=== PATIENT | female | born 1985 | race Caucasian/White ===

== ENCOUNTER 2020-09-24 12:55 | Outpatient (REF) | payer MEDICAID, SELFPAY ==
[2020-09-25 08:59] LABS: BV Int Neg Control Negative (Negative); BV Int Pos Control Positive (Positive)
== END 2020-09-24 12:56 | disposition home or self-care (01) ==
LOC: HO.LAB 12:55
PROVIDERS: PCP Internal Medicine; Visit Provider Advanced Practice Midwife
DX: Z01.419 Encounter for gynecological examination (general) (routine) without abnormal findings (principal); N89.8 Other specified noninflammatory disorders of vagina; N63.23 Unspecified lump in the left breast, lower outer quadrant; R51.9 Headache, unspecified; I83.93 Asymptomatic varicose veins of bilateral lower extremities; Z86.16 Personal history of COVID-19
CPT/HCPCS: 87480; 87510; 87660

== ENCOUNTER 2020-10-08 07:58 | Outpatient (REF) | payer MEDICAID, SELFPAY ==
--- NOTE | ~2020-10-08 | MM_ITS ---
EXAMINATION: MM DIAGNOSTIC DIGITAL BREAST TOMOSYNTHESIS, BILATERAL US DIAGNOSTIC ULTRASOUND BREAST, RIGHT CLINICAL INFORMATION: Palpable fullness clinical exam lower inner right breast. Patient notes no new palpable abnormality. Prior benign right breast biopsy 10/08/2017, fibroadenoma. The lifetime risk of breast cancer based on the Tyrer-Cuzick Model is 11%. COMPARISON: Mammography: 09/27/2017, 10/08/2017, ultrasound right breast 09/27/2017, 10/08/2017 TECHNIQUE: Digital breast tomosynthesis is performed in both the craniocaudal and mediolateral oblique views along with computer-aided detection (CAD). Synthesized 2D images are generated from the tomosynthesis. Ultrasound right breast is targeted to the lower inner breast. Grayscale imaging and color Doppler are performed. FINDINGS: There are scattered areas of fibroglandular density (ACR BI-RADS breast composition Category b). The breasts show no significant mass or architectural abnormality or interval duct ectasia. There are no abnormal calcifications. The known fibroadenoma lower inner quadrant right breast mid depth is moderately decreased in size since 2018. The skin contours are smooth. No skin thickening or coarsening of the Josue's ligaments. Ultrasound demonstrates no duct ectasia, skin thickening, or edema tracking in soft tissue planes, or interval cystic or solid mass. The fibroadenoma is clearly decreased in size on tomography and difficult to identify with ultrasound. Results are discussed with the patient at time of visit. Patient should be managed based on the clinical impression. If clinically indicated, further evaluation may be considered with surgical consult. Decision to proceed with biopsy should be based on clinical grounds and degree of clinical concern. MM/MM tomosynthesis diagnostic BI IMPRESSION: 1. No mammographic evidence of malignancy or inflammatory changes. 2. Right breast fibroadenoma moderately decreased in size since 2018. ASSESSMENT: BI-RADS 2: Benign RECOMMENDATION: 1. Patient should be managed based on the clinical impression. If clinically indicated, further evaluation may be considered with surgical consult. Decision to proceed with biopsy should be based on clinical grounds and degree of clinical concern. 2. Otherwise, routine annual screening mammography. This patient's information was entered into a reminder system with a target due date for their next mammogram.
== END 2020-10-08 07:59 | disposition home or self-care (01) ==
LOC: HO.MAMMO 07:58
PROVIDERS: Visit Provider Advanced Practice Midwife
DX: N63.23 Unspecified lump in the left breast, lower outer quadrant (principal)
CPT/HCPCS: 76642; 77062; 77066

== ENCOUNTER → 2020-10-22 11:20 | Outpatient (BNVA) | payer MEDICAID, SELFPAY | PROVIDERS: PCP Internal Medicine; Visit Provider Advanced Practice Midwife ==

== ENCOUNTER 2020-10-23 16:08 | Outpatient (REF) | payer MEDICAID, SELFPAY | END 2020-10-23 16:09 | disposition home or self-care (01) | LOC: HO.LAB 16:08 | PROVIDERS: PCP Internal Medicine; Visit Provider Advanced Practice Midwife | DX: N64.52 Nipple discharge (principal) | CPT/HCPCS: 36415; 84146 ==

== ENCOUNTER → 2021-03-10 20:31 | Outpatient (REF) | payer MEDICAID, SELFPAY | LOC: HO.SL 20:31 | PROVIDERS: Visit Provider Internal Medicine | DX: G47.33 Obstructive sleep apnea (adult) (pediatric) (principal) | CPT/HCPCS: 95810 ==

== ENCOUNTER → 2021-04-15 13:57 | Outpatient (BNVA) | payer MEDICAID, SELFPAY | PROVIDERS: Visit Provider Advanced Practice Midwife | DX: E28.2 Polycystic ovarian syndrome (principal); N93.9 Abnormal uterine and vaginal bleeding, unspecified | CPT/HCPCS: 99212 ==

== ENCOUNTER 2021-05-12 11:00 | Outpatient (REF) | payer MEDICAID, SELFPAY ==
--- NOTE | ~2021-05-12 | US_ITS ---
EXAMINATION: US PELVIS CLINICAL INFORMATION: Polycystic ovarian syndrome. COMPARISON: 06/06/2018 TECHNIQUE: Ultrasound of the pelvis is performed using both transabdominal and transvaginal transducers along with Doppler. Transvaginal imaging is performed due to inadequate visualization transabdominally. FINDINGS: There are some limitations related to gas and full bladder on transvaginal examination despite patient voiding. Uterus: The uterus is anteverted and measures 7.7 x 1.9 x 3.9 cm. Nabothian cysts are present. The double wall endometrial thickness is [address] The uterus is smooth in contour and has normal myometrial echogenicity. No visible fibroid. Adnexa: Both ovaries are visualized. There is normal color flow to the adnexa. There is no ovarian torsion. There is no pelvic ascites or fluid collection. Right ovary measures 3.4 x 2.1 x 2.5 cm. 9.3 mL volume. There is a 2.6 x 2.0 x 2.4 cm avascular cyst present. Left ovary was not seen. US/US pelvic and transvaginal IMPRESSION: No specific ultrasound findings to suggest polycystic ovarian syndrome. A 2.6 cm right ovarian cyst. IUD in place.
[2021-05-12 11:25] LABS: MANUAL DIFF FLAG NO
[2021-05-12 11:41] LABS: Basophils Percent Auto 0.6 % (0-2); Eosinophils Absolute Auto 0.5 X10*3/uL (0.0-0.4); Hematocrit 41.8 % (37-47); Hemoglobin 13.7 g/dl (12.0-16.0); Imm Gran Abs Auto 0.03 X10*3/uL (0.00-0.03); Imm Gran Pct Auto 0.4 % (0.0-0.4); Lymphocytes Absolute Auto 1.9 X10*3/uL (1.2-4.9); Lymphocytes Percent Auto 28.5 % (20-40); Mean Corpuscular HGB Conc 32.8 g/dl (31.0-35.0); Mean Corpuscular Hemoglobin 28.1 pg (27.0-33.0); Mean Corpuscular Volume 85.7 fL (80-98); Mean Platelet Volume 9.2 fL (9.4-12.3); Monocytes Absolute Auto 0.4 X10*3/uL (0.1-1.2); Monocytes Percent Auto 6.6 % (2-11); Neutrophils Absolute Auto 3.8 X10*3/uL (2.0-8.3); Neutrophils Percent Auto 56.9 % (45-73); Platelet Count 292 X10*3/uL (160-400); Red Blood Count 4.88 X10*6/uL (4.20-5.50); Red Cell Distribution Width 12.8 % (11.0-16.0); White Blood Count 6.7 X10*3/uL (4.8-10.8)
[2021-05-12 12:21] LABS: TSH reflex Free T4 2.21 uIU/mL (0.32-4.0)
[2021-05-13 05:20] LABS: DHEA Sulfate 412 mcg/dL (23-266)
[2021-05-13 21:51] LABS: Prolactin 7.2 ng/mL
[2021-05-16 15:26] LABS: Testosterone, Free 5.7 pg/mL (0.1-6.4); Testosterone, Total 49 ng/dL (2-45)
== END 2021-05-12 11:01 | disposition home or self-care (01) ==
LOC: HO.US 11:00
PROVIDERS: Visit Provider Advanced Practice Midwife
DX: E28.2 Polycystic ovarian syndrome (principal); N93.9 Abnormal uterine and vaginal bleeding, unspecified
CPT/HCPCS: 36415; 76830; 76856; 82627; 83498; 84146; 84402; 84403; 84443; 85025

== ENCOUNTER 2021-05-26 14:27 | Outpatient (REF) | payer MEDICAID, SELFPAY ==
[2021-05-27 01:30] LABS: CT PCR NOT DETECTED (Not Detect.); NG PCR NOT DETECTED (Not Detect.)
[2021-05-27 12:09] LABS: BV Int Neg Control Negative (Negative); BV Int Pos Control Positive (Positive)
== END 2021-05-26 14:28 | disposition home or self-care (01) ==
LOC: HO.LAB 14:27
PROVIDERS: PCP Internal Medicine; Visit Provider Advanced Practice Midwife
DX: E28.2 Polycystic ovarian syndrome (principal); N93.9 Abnormal uterine and vaginal bleeding, unspecified; R79.89 Other specified abnormal findings of blood chemistry; E27.8 Other specified disorders of adrenal gland; Z20.2 Contact with and (suspected) exposure to infections with a predominantly sexual mode of transmission
CPT/HCPCS: 87480; 87491; 87510; 87591; 87660; 99212

== ENCOUNTER 2021-09-29 14:54 | Outpatient (REF) | payer MEDICAID, SELFPAY ==
[2021-09-29 16:23] LABS: Hematocrit 42.8 % (37.0-47.0); Mean Corpuscular HGB Conc 32.7 g/dl (31.0-35.0); Mean Corpuscular Hemoglobin 28.1 pg (27.0-33.0); Mean Corpuscular Volume 85.9 fL (80.0-98.0); Mean Platelet Volume 9.5 fL (9.4-12.3); Platelet Count 296 X10*3/uL (160-400); Red Blood Count 4.98 X10*6/uL (4.20-5.50); Red Cell Distribution Width 12.7 % (11.0-16.0); White Blood Count 8.8 X10*3/uL (4.8-10.8)
[2021-09-30 03:06] LABS: CT PCR NOT DETECTED (Not Detect.); NG PCR NOT DETECTED (Not Detect.)
[2021-09-30 14:13] LABS: BV Int Neg Control Negative (Negative); BV Int Pos Control Positive (Positive)
[2021-10-02 11:00] LABS: HPV mRNA E6/E7 rflx Not Detected (Not Detected)
== END 2021-09-29 14:55 | disposition home or self-care (01) ==
LOC: HO.LAB 14:54
PROVIDERS: PCP Internal Medicine; Visit Provider Advanced Practice Midwife
DX: Z01.411 Encounter for gynecological examination (general) (routine) with abnormal findings (principal); Z11.51 Encounter for screening for human papillomavirus (HPV); N89.8 Other specified noninflammatory disorders of vagina; N93.9 Abnormal uterine and vaginal bleeding, unspecified; R10.2 Pelvic and perineal pain; Z20.2 Contact with and (suspected) exposure to infections with a predominantly sexual mode of transmission; N83.201 Unspecified ovarian cyst, right side
CPT/HCPCS: 36415; 85027; 87480; 87491; 87510; 87591; 87624; 87660; 88142

== ENCOUNTER 2021-10-28 15:53 | Outpatient (REF) | payer MEDICAID, SELFPAY ==
--- NOTE | ~2021-10-28 | US_ITS ---
EXAMINATION: US PELVIS CLINICAL INFORMATION: Abnormal uterine and vaginal bleeding COMPARISON: Previous pelvic ultrasounds most recent April 2021 TECHNIQUE: Ultrasound of the pelvis is performed using both transabdominal and transvaginal transducers along with Doppler. Transvaginal imaging is performed due to inadequate visualization transabdominally. FINDINGS: The uterus is retroverted and retroflexed and slightly tilted to the left. The uterus measures 5.8 x 3 x 5.1 cm region. No focal uterine lesion is seen. There is an IUD in the uterus. This is slightly low in position, 1.6 cm from the top of the endometrium. The endometrium does not appear thickened measuring 0.8 cm. No focal uterine lesion is seen. The right ovary is normal-appearing and measures 3.4 x 2.2 x 2 cm. The left ovary is slightly enlarged measuring 4.7 x 3.1 x 3.8 cm, volume 29 mL. There is a 4 x 2.7 x 3 cm left ovarian cyst. There is no fluid in the pelvis. US/US pelvic and transvaginal IMPRESSION: IUD in the uterus. This is slightly low in position 1.6 cm from the top of the endometrium. Enlarged left ovary and 4 x 2.7 x 3.2 cm left ovarian cyst.
== END 2021-10-28 15:54 | disposition home or self-care (01) ==
LOC: HO.US 15:53
PROVIDERS: Visit Provider Advanced Practice Midwife
DX: Z30.431 Encounter for routine checking of intrauterine contraceptive device (principal); N93.9 Abnormal uterine and vaginal bleeding, unspecified
CPT/HCPCS: 76830; 76856

== ENCOUNTER → 2021-11-04 15:56 | Outpatient (BNVA) | payer MEDICAID, SELFPAY | PROVIDERS: Visit Provider Advanced Practice Midwife | DX: Z13.89 Encounter for screening for other disorder (principal) ==

== ENCOUNTER 2022-01-09 08:16 | Outpatient (REF) | payer MEDICAID, SELFPAY ==
[2022-01-09 08:36] LABS: MANUAL DIFF FLAG NO
[2022-01-09 09:09] LABS: Basophils Percent Auto 0.5 % (0-2); Eosinophils Absolute Auto 0.3 X10*3/uL (0.0-0.4); Eosinophils Percent Auto 4.7 % (0-4); Hematocrit 39.5 % (37.0-47.0); Hemoglobin 13.3 g/dl (12.0-16.0); Imm Gran Abs Auto 0.01 X10*3/uL (0.00-0.03); Imm Gran Pct Auto 0.2 % (0.0-0.4); Lymphocytes Absolute Auto 1.6 X10*3/uL (1.2-4.9); Lymphocytes Percent Auto 29.1 % (20-40); Mean Corpuscular HGB Conc 33.7 g/dl (31.0-35.0); Mean Corpuscular Hemoglobin 28.7 pg (27.0-33.0); Mean Corpuscular Volume 85.3 fL (80.0-98.0); Mean Platelet Volume 9.6 fL (9.4-12.3); Monocytes Absolute Auto 0.4 X10*3/uL (0.1-1.2); Monocytes Percent Auto 7.2 % (2-11); Neutrophils Absolute Auto 3.3 x10*3/uL (2.0-8.3); Neutrophils Percent Auto 58.3 % (45-73); Platelet Count 259 X10*3/uL (160-400); Red Blood Count 4.63 X10*6/uL (4.20-5.50); White Blood Count 5.6 X10*3/uL (4.8-10.8)
[2022-01-09 09:33] LABS: Alanine Aminotransferase 19 U/L (0-31); Albumin Level 4.2 g/dL (3.5-5.0); Alkaline Phosphatase 74 U/L (39-117); Anion Gap 11 (12-20); Aspartate Amino Transferase 13 U/L (5-31); Bilirubin Total 0.6 mg/dL (0.0-1.0); Blood Urea Nitrogen 10 mg/dL (9-16); Calcium 9.4 mg/dL (8.4-10.2); Carbon Dioxide 27 mmol/L (22-29); Chloride 104 mmol/L (96-108); Cholesterol 149 mg/dL; Estimated Glomerular Filt Rate > 60; Glucose Fasting 93 mg/dL (60-99); HDL Cholesterol 56 mg/dL; LDL Cholesterol Calculated 83 mg/dl; Potassium 4.4 mmol/L (3.3-5.1); Sodium 138 mmol/L (135-145); Total Protein 6.9 g/dL (6.5-8.0); Triglycerides 51 mg/dL
[2022-01-09 09:56] LABS: Thyroid Stimulating Hormone 2.48 uIU/mL (0.32-4.0)
== END 2022-01-09 08:17 | disposition home or self-care (01) ==
LOC: HO.LAB 08:16
PROVIDERS: PCP Internal Medicine; Visit Provider Internal Medicine
DX: E03.8 Other specified hypothyroidism (principal); G47.33 Obstructive sleep apnea (adult) (pediatric); I10 Essential (primary) hypertension; J30.89 Other allergic rhinitis
CPT/HCPCS: 36415; 80053; 80061; 84443; 85025

== ENCOUNTER → 2022-03-17 11:38 | Outpatient (BNVA) | payer MEDICAID, SELFPAY | PROVIDERS: PCP Internal Medicine; Visit Provider Advanced Practice Midwife | DX: Z30.432 Encounter for removal of intrauterine contraceptive device (principal); T83.32XA Displacement of intrauterine contraceptive device, initial encounter; R10.2 Pelvic and perineal pain; R32 Unspecified urinary incontinence | CPT/HCPCS: 58301 ==

== ENCOUNTER 2022-05-26 12:54 | Outpatient (REF) | payer MEDICAID, SELFPAY ==
--- NOTE | ~2022-05-26 | US_ITS ---
EXAMINATION: US PELVIS CLINICAL INFORMATION: Pain COMPARISON: Previous pelvic ultrasound most recent October 2021 TECHNIQUE: Ultrasound of the pelvis is performed using both transabdominal and transvaginal transducers along with Doppler. Transvaginal imaging is performed due to inadequate visualization transabdominally. FINDINGS: The uterus is anteverted and retroflexed and measures 6.9 x 2.7 x 4 cm. No focal uterine lesion is seen. Endometrial thickness is normal measuring 0.7 cm. IUD on October 2021 exam is no longer seen. There are nabothian cysts in the cervix. The right ovary is normal-appearing and measures 2.3 x 1.5 x 1.9 cm. The left ovary is seen transabdominally only and is normal-appearing. The left ovary measures 3.5 x 2.1 x 2.1 cm. There is no fluid in the pelvis. US/US pelvic and transvaginal IMPRESSION: Unremarkable exam. IUD no longer seen.
== END 2022-05-26 12:55 | disposition home or self-care (01) ==
LOC: HO.US 12:54
PROVIDERS: Visit Provider Advanced Practice Midwife
DX: R10.2 Pelvic and perineal pain (principal)
CPT/HCPCS: 76830; 76856

== ENCOUNTER → 2022-06-25 11:12 | Outpatient (BNVA) | payer MEDICAID, SELFPAY | PROVIDERS: Visit Provider Advanced Practice Midwife | DX: N94.9 Unspecified condition associated with female genital organs and menstrual cycle (principal) | CPT/HCPCS: 99212 ==

== ENCOUNTER 2022-07-14 14:37 | Outpatient (REF) | payer MEDICAID, SELFPAY ==
[2022-07-14 17:09] LABS: Thyroid Stimulating Hormone 1.29 uIU/mL (0.32-4.0)
== END 2022-07-14 14:38 | disposition home or self-care (01) ==
LOC: HO.LAB 14:37
PROVIDERS: PCP Internal Medicine; Visit Provider Internal Medicine
DX: Z00.00 Encounter for general adult medical examination without abnormal findings (principal); E03.8 Other specified hypothyroidism; I10 Essential (primary) hypertension; I87.2 Venous insufficiency (chronic) (peripheral)
CPT/HCPCS: 36415; 84443

== ENCOUNTER → 2022-08-11 13:58 | Outpatient (BNVA) | payer MEDICAID, SELFPAY | PROVIDERS: PCP Internal Medicine; Visit Provider Advanced Practice Midwife | DX: Z30.09 Encounter for other general counseling and advice on contraception (principal) | CPT/HCPCS: 99212 ==

== ENCOUNTER → 2022-08-31 10:39 | Outpatient (BNVA) | payer MEDICAID, SELFPAY | PROVIDERS: PCP Internal Medicine; Visit Provider Advanced Practice Midwife | DX: Z30.430 Encounter for insertion of intrauterine contraceptive device (principal) | CPT/HCPCS: 58300; 81025; J7300 ==

== ENCOUNTER → 2022-10-13 14:38 | Outpatient (BNVA) | payer MEDICAID, SELFPAY | PROVIDERS: PCP Internal Medicine; Visit Provider Advanced Practice Midwife | DX: Z30.431 Encounter for routine checking of intrauterine contraceptive device (principal); R21 Rash and other nonspecific skin eruption | CPT/HCPCS: 99212 ==

== ENCOUNTER 2022-11-19 13:00 | Outpatient (RCR) | payer MEDICAID, SELFPAY | END 2022-11-19 13:56 | disposition home or self-care (01) | LOC: HO.PT 13:00 | PROVIDERS: PCP Internal Medicine; Visit Provider Advanced Practice Midwife | DX: R32 Unspecified urinary incontinence (principal) | CPT/HCPCS: 97112; 97140; 97162 ==

== ENCOUNTER 2023-01-07 13:10 | Outpatient (REF) | payer OTHER, MEDICAID, SELFPAY ==
[2023-01-08 11:53] LABS: CT PCR NOT DETECTED (Not Detect.); NG PCR NOT DETECTED (Not Detect.)
[2023-01-08 13:57] LABS: BV Int Neg Control Negative (Negative); BV Int Pos Control Positive (Positive)
== END 2023-01-07 13:11 | disposition home or self-care (01) ==
LOC: HO.LAB 13:10
PROVIDERS: PCP Internal Medicine; Visit Provider Advanced Practice Midwife
DX: N92.1 Excessive and frequent menstruation with irregular cycle (principal); Z97.5 Presence of (intrauterine) contraceptive device
CPT/HCPCS: 0353U; 87480; 87510; 87660

== ENCOUNTER 2023-01-07 13:51 | Outpatient (REF) | payer OTHER, MEDICAID, SELFPAY | END 2023-01-07 13:52 | disposition home or self-care (01) | LOC: HO.LNP 13:51 | PROVIDERS: Visit Provider Advanced Practice Midwife | DX: Z13.89 Encounter for screening for other disorder (principal) ==

== ENCOUNTER 2024-01-14 13:55 | Outpatient (AMB) | payer OTHER, SELFPAY ==
[2024-01-14 13:55] VITALS: BP 128/86; BMI 36.9
--- NOTE | 2024-01-14 13:55 | A.OFFVIS_ITS ---
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 Allergies azithromycin [AZITHROMYCIN] Allergy (Intermediate, Verified 01/14/24 13:55) HIVES cephalexin [CEPHALEXIN] Allergy (Intermediate, Verified 01/14/24 13:55) HIVES Penicillins [PENICILLINS] Allergy (Intermediate, Verified 01/14/24 13:55) HIVES Clindamycin HCl Allergy (Unknown, Verified 01/14/24 13:55) Unknown escitalopram [From Lexapro] Allergy (Unknown, Verified 01/14/24 13:55) Unknown penicillin V Allergy (Unknown, Verified 01/14/24 13:55) Unknown Is last menstrual period known: Yes Last menstrual period: 12/24/23 HPI Comments Details: She is a premenopausal woman presenting for annual examination. Doing well with no concerns. Has urinary leakage and urgency at times, has tried pelvic floor PT did not help. She tries to eat healthy and stays active with exercise. Weight loss over the last years 90+ balance and she is feeling good. Regular monthly menses since her surgery. Uses ParaGard IUD for control, has no plans for future . Currently is sexually active with . She denies vaginal itching and irritation. STI screening offered; she declines. Denies family history of ovarian or colon cancer. FH breast cancer. Last pap smear 2021, negative. [facility] Medical History Varicosities of leg Obesity PCOS (polycystic ovarian syndrome) Fibroadenoma of right breast DVT (deep venous thrombosis) Occipital neuralgia COVID-19 Hypothyroid ADHD Surgical History H/O varicose vein stripping Hx of wisdom tooth extraction Family History Maternal Aunt Breast cancer Father Heart disease H/O heart artery stent Social History Alcohol intake: current Female Reproductive History Menstrual Duration of menses: 6-7 days Date of last menstrual period: 12/24/23 control method: copper IUCD Date of last pap smear: 09/30/21 History of abnormal pap smear: No History of STI: No Date of Mammogram: 10/08/20 History of abnormal mammogram: Yes Review of Systems Const All systems reviewed & are unremarkable except as noted in HPI and below Reports as per HPI Eyes Reports no additional complaints ENT Reports no additional complaints Card Reports no additional complaints Resp Reports no additional complaints GI Reports as per HPI and Reports no additional complaints Reports as per HPI Musc Reports no additional complaints Skin/Breast Reports as per HPI Neuro Reports no additional complaints Psych Reports no additional complaints Endo Reports no additional complaints Horacio/Lymph Reports no additional complaints Aller/Immun Reports no additional complaints Physical Exam Vital Signs: Last Vital Signs BP 128/86 01/14/24 13:55 BMI result Body Mass Index 36.9 Const General: cooperative, healthy appearing, no acute distress, well developed and alert Orientation/consciousness: patient oriented x3 HEENT Head: Yes normal to inspection Eyes General: appearance normal, both eyes and all related structures Neck Neck: Yes normal visual inspection Thyroid: Thyroid normal Chest Chest palpation & inspection: normal inspection of the chest and other (no puckering, dimpling, peau de orange, retraction, discharge, masses) Breast/axilla inspection: normal inspection of the breasts Breast/axilla palpation: normal palpation of the breasts Resp Effort & Inspection: normal respiratory effort GI Inspection: Yes normal to inspection and Yes scar Palpation (GI): Soft to palpation Rectal Exam - Female: deferred General: Yes bladder normal to palpation External Female Exam: normal external appearance and normal appearance of the urethra Speculum Exam - Vagina: normal appearance of the vagina, normal palpation and normal vaginal discharge Speculum Exam - Cervix: normal appearance of the cervix, normal palpation and Other cervical findings present (IUD strings present at the os) Bimanual exam- vagina & uterus: normal bimanual exam, normal palpation, uterine size normal, bladder normal to palpation, normal palpation and non-tender Bimanual Exam- Adnexa, other: no masses Skin General skin exam: no rashes or lesions noted Rashes: no rashes Neuro General: patient oriented x3 Cognition (Neuro): normal cognition Extrem General: Yes normal to inspection Psych Attitude: cooperative Thought process: Normal thought process present Assessment & Plan Assessment & Plan (1) Encounter for well woman exam with routine gynecological exam: Code(s): Z01.419 - Encounter for gynecological examination (general) (routine) without abnormal findings Category: Medical Plan: (2) Urge incontinence: Code(s): N39.41 - Urge incontinence Category: Medical Plan Discussed: Current recommendations for pap smears per ASCCP guidelines. Breast awareness and periodic breast exams. Maintain a healthy lifestyle including a well balanced diet and routine exercise. Referral to urology for urge incontinence. Monitor menses and report any problems or concerns. Patient verbalizes understanding and agrees to the plan of care. She was given opportunity to ask questions and all questions were answered to the best of my ability. RTO in one year for annual director of litigation examination. This note is constructed using voice recognition software. While every effort has been made to ensure accuracy, superintendent generating plant errors may have been included. Orders: Referrals Urology Referral N39.41 - Urge incontinence Coding Level of Care Code Est Pt Prev Care 18-39y(43586) Diagnoses Encounter for well woman exam with routine gynecological exam Z01.419 Urge incontinence N39.41
== END 2024-01-14 14:23 | disposition home or self-care (01) ==
PROVIDERS: PCP Internal Medicine; Visit Provider Advanced Practice Midwife
DX: Z01.419 Encounter for gynecological examination (general) (routine) without abnormal findings (principal); N39.41 Urge incontinence
CPT/HCPCS: 99395

== ENCOUNTER → 2024-01-14 13:55 | Outpatient (BNVA) | payer OTHER, SELFPAY | PROVIDERS: PCP Internal Medicine; Visit Provider Advanced Practice Midwife | DX: Z01.419 Encounter for gynecological examination (general) (routine) without abnormal findings (principal); N39.41 Urge incontinence | CPT/HCPCS: 99395 ==

== ENCOUNTER 2024-03-28 14:49 | Outpatient (AMB) | payer OTHER, SELFPAY ==
--- NOTE | 2024-03-28 15:15 | A.OFFVIS_ITS ---
Intake Visit Reasons: urge incontinence Intake Note: New Patient presents for initial visit for incontinence Urology Medications: none Blood Thinner: none PVR: 0ml's Bar Turner Required: No Accompanied by: Self / Same As Patient Allergies azithromycin [AZITHROMYCIN] Allergy (Intermediate, Verified 03/28/24 19:21) HIVES cephalexin [CEPHALEXIN] Allergy (Intermediate, Verified 03/28/24 19:21) HIVES Penicillins [PENICILLINS] Allergy (Intermediate, Verified 03/28/24 19:21) HIVES Clindamycin HCl Allergy (Unknown, Verified 03/28/24 19:21) Unknown escitalopram [From Lexapro] Allergy (Unknown, Verified 03/28/24 19:21) Unknown penicillin V Allergy (Unknown, Verified 03/28/24 19:21) Unknown Medication List - Last Reconciled 03/28/24 by MEJIA Owusu-MARCIANO ascorbate calcium (vitamin C) 500 mg PO DAILY calcium citrate-vitamin D3 500 mg-12.5 mcg (500 unit) tabs PO copper (ParaGard T 380A) intrauterine DAILY econazole 1% 1 appl topical BID 2 weeks fluoxetine 40 mg PO QAM levothyroxine 75 mcg PO DAILY methylphenidate HCl (Ritalin) 10 mg PO BID [id number]-FA-vit K 45 mg iron- 800 mcg-120 mcg (Bariatric Multivitamins) caps PO nystatin 1 appl topical BID omeprazole magnesium (Prilosec OTC) 20 mg PO DAILY HPI Comments Details: Ramya is a very pleasant 38-year-old female patient of Dr. Patel. She has a past medical history of obesity, PCOS, fibroadenoma of right breast, DVT, occipital neuralgia, hypothyroidism, and ADHD. She presents to the office today as a new patient for ongoing urinary urgency, in mixed urinary incontinence. In discussion with the patient today she reports having had bariatric surgery over a year ago and has since lost 97 lb. She does report minimal improvement with lower urinary tract symptoms with weight loss however still continues. 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 She reports utilizing 1-3 Kenzie pads per day. She otherwise denies nocturia, hematuria, dysuria, foul smelling urine, changes to urinary stream, flank pain, fever, and or chills. In office urinalysis results reviewed with the patient today. PVR 0 mL. Discussed obtai toni retroperitoneal ultrasound for further assessment evaluation. We discussed at length potential causes of mixed urinary incontinence she is experiencing. Discussed bladder triggers/irritants. She otherwise offers no other issues or concerns at this time. [facility] Medical History Varicosities of leg Obesity PCOS (polycystic ovarian syndrome) Fibroadenoma of right breast DVT (deep venous thrombosis) Occipital neuralgia COVID-19 Hypothyroid ADHD Surgical History H/O varicose vein stripping Hx of wisdom tooth extraction Family History Maternal Aunt Breast cancer Father Heart disease H/O heart artery stent Social History Alcohol intake: current Review of Systems Const All systems reviewed & are unremarkable except as noted in HPI and below Physical Exam Const General: cooperative, healthy appearing, comfortable, no acute distress, well developed, alert and awake Nutritional Appearance: overweight Orientation/consciousness: patient oriented x3 Limitations: no limitations HEENT Head: Yes normal to inspection, Yes normocephalic and Yes atraumatic Ears: hearing grossly normal bilaterally Eyes General: appearance normal, both eyes and all related structures Neck Neck: Yes normal visual inspection and Yes trachea midline Chest Chest palpation & inspection: normal inspection of the chest Resp Effort & Inspection: normal respiratory effort and able to speak in complete sentences Cardio Rate: regular rate GI Inspection: Yes normal to inspection General: Yes no CVA tenderness Back/Spine/Pelvis Back: no CVA tenderness Skin General skin exam: no rashes or lesions noted Neuro General: patient oriented x3 Extrem General: Yes normal to inspection Psych Appearance: grossly normal and well kempt Mental Status: mental status grossly normal Speech and movement: Normal speech and movement present and Clear speech present Affect: normal affect Attitude: cooperative Thought process: Normal thought process present Thought content: Normal thought content present Insight: Fair insight present (Psych) Judgement: Fair judgement present (Psych) Office Procedures Post Void Residual Post Residual Void Post Void Residual (PVR): 0 [id number]-[id number] Void Residual by ultrasound Results AMB Urinalysis, Automated UA Leukoctes 0 Tayo/uL Last Edit by Mohamud Hodges on 03/28/24 15:50 UA Nitrite Last Edit by Mohamud Hodges on 03/28/24 15:50 UA Urobilinogen 0.2 mg/dL Last Edit by Mohamud Hodges on 03/28/24 15:50 UA Protein 0 mg/dL Last Edit by Mohamud Hodges on 03/28/24 15:50 UA pH 6.0 Last Edit by Mohamud Hodges on 03/28/24 15:50 UA Blood 0 Luis Daniel/uL Last Edit by Mohamud Hodges on 03/28/24 15:50 UA Specific Bowler 1.010 Last Edit by [email or web address] teresa Hodges on 03/28/24 15:50 UA Ketone Negative Last Edit by Mohamud Hodges on 03/28/24 15:50 UA Bilirubin 0 mg/dL Last Edit by Mohamud Hodges on 03/28/24 15:50 UA Glucose 0 mg/dL Last Edit by Mohamud Hodges on 03/28/24 15:50 Results Reviewed Results Reviewed: Laboratory Last Values Urine pH (Auto) 6.0 03/28/24 15:49 Specific Bowler (Auto) 1.010 03/28/24 15:49 Urine Protein (Auto) 0 mg/dL 03/28/24 15:49 Glucose (UA)(Auto) 0 mg/dL 03/28/24 15:49 Urine Ketones (Auto) Negative 03/28/24 15:49 Urine Blood (Auto) 0 Luis Daniel/uL 03/28/24 15:49 Urine Bilirubin (Auto) 0 mg/dL 03/28/24 15:49 Urine Urobilinogen (Auto) 0.2 mg/dL 03/28/24 15:49 Leukocyte Esterase (Auto) 0 Tayo/uL 03/28/24 15:49 Assessment & Plan Assessment & Plan (1) Urge incontinence: Code(s): N39.41 - Urge incontinence Category: Medical (2) Urinary incontinence: Code(s): R32 - Unspecified urinary incontinence Category: Medical Plan In office urinalysis results reviewed with the patient today; as noted above. PVR 0 mL. Start oxybutynin as discussed and prescribed. Discussed bladder triggers/irritants. Discussed obtaining retroperitoneal ultrasound for further assessment evaluation. Discussed at length potential causes of mixed urinary incontinence. Will schedule for in office urodynamics. Follow-up in 1-3 months with imaging and PVR; or sooner with any issues, concerns, and or questions. Orders: Orders AMB Post Void Residual by ultrasound Today N39.41 - Urge incontinence US retroperitoneal comp Today N39.41 - Urge incontinence, R32 - Unspecified urinary incontinence AMB Urinalysis Automated Today Z13.9 - Encounter for screening, unspecified Medications: New oxybutynin chloride ER 10 mg PO DAILY 30 days 30 tabs 3RF N32.81 - Overactive bladder Patient Instructions: The patient had an opportunity to ask questions regarding the treatment plan. All questions were answered. Physical exam, labs, and imaging were discussed and reviewed in detail. As well as risks, benefits, and discussion of treatment c reji. No major barriers to understanding were identified. The patient expressed understanding and agreement with the above treatment plan. The patient was made aware they should contact our office by phone for worsening of their current condition, the appearance of new symptoms, or with any questions or concerns. Compliance is encouraged with any medications and follow up testing that is ordered. It is a privilege to be allowed the opportunity to participate in? your urological care.? Again, if you have any questions or concerns If you have any questions or concerns please do not hesitate to contact me. The office is [phone]. This note is constructed using voice recognition software. While every effort has been made to ensure accuracy piano case and bench assembler errors may have been included. Yours sincerely, MARCIANO Owusu Coding Level of Care Code New Pt Level 4 (31793) Diagnoses Urge incontinence N39.41 Urinary incontinence R32 CPT Codes Post Residual Void - PVR CPT Code: 04913-Enao Void Residual by ultrasound ([id number])
== END 2024-03-28 15:55 | disposition home or self-care (01) ==
PROVIDERS: PCP Internal Medicine; Visit Provider Nurse Practitioner Family
DX: N39.41 Urge incontinence (principal); R32 Unspecified urinary incontinence; Z13.9 Encounter for screening, unspecified
CPT/HCPCS: 99204

== ENCOUNTER → 2024-03-28 14:49 | Outpatient (BNVA) | payer OTHER, SELFPAY | PROVIDERS: PCP Internal Medicine; Visit Provider Nurse Practitioner Family | DX: N39.41 Urge incontinence (principal) | CPT/HCPCS: 51798; 81003; 99202 ==

== ENCOUNTER 2024-04-27 14:24 | Outpatient (REF) | payer OTHER, SELFPAY ==
--- NOTE | ~2024-04-27 | US_ITS ---
EXAMINATION: US RETROPERITONEAL COMPLETE (RENAL) CLINICAL INFORMATION: Urinary incontinence.. COMPARISON: None available. TECHNIQUE: Real-time imaging of the kidneys and bladder. FINDINGS: RIGHT KIDNEY: 11 x 5 x 5 cm (SAG x AP x TRV). Volume is 134 cc. The kidney is normal in size, contour, and echogenicity. Renal cortical thickness is normal. No calculi or focal parenchymal lesions. No hydronephrosis. Normal flow on color Doppler interrogation within the renal hilum. LEFT KIDNEY: 11 x 5 x 6 cm (SAG x AP x TRV). Volume is 169 cc. The kidney is normal in size, contour, and echogenicity. Renal cortical thickness is normal. No calculi or focal parenchymal lesions. No hydronephrosis. Normal flow on color Doppler interrogation of the renal hilum. BLADDER: Fluid-filled. Bilateral ureteral jets are demonstrated. Prevoid bladder volume is 455 mL. Postvoid bladder volume is 64 mL. US/US retroperitoneal comp IMPRESSION: 64 cc residual urine in a post void image. No hydronephrosis.. Electronically signed by: Ahsan Norris MD 05/25/2024 12:57 PM EST
== END 2024-04-27 14:25 | disposition home or self-care (01) ==
LOC: HO.US 14:24
PROVIDERS: PCP Internal Medicine; Visit Provider Nurse Practitioner Family
DX: N39.41 Urge incontinence (principal)
CPT/HCPCS: 76770

== ENCOUNTER → 2024-04-27 14:27 | Outpatient (BNV) | payer OTHER, SELFPAY | PROVIDERS: PCP Internal Medicine; Visit Provider Radiology Diagnostic Radiology | DX: N39.41 Urge incontinence (principal) | CPT/HCPCS: 76770 ==

== ENCOUNTER 2024-05-17 15:58 | Outpatient (AMB) | payer OTHER, SELFPAY ==
--- NOTE | 2024-05-17 16:08 | A.OFFVIS_ITS ---
Intake Visit Reasons: 2m/US Intake Note: Patient presents today for follow up on: incontinence and ultrasound results Imaging Completed: 04/27/24 Urology Medications: none Blood Thinner: none PVR: 0ml's Drafter Civil Engineering Required: No Accompanied by: Self / Same As Patient Allergies azithromycin [AZITHROMYCIN] Allergy (Intermediate, Verified 05/17/24 22:16) HIVES cephalexin [CEPHALEXIN] Allergy (Intermediate, Verified 05/17/24 22:16) HIVES Penicillins [PENICILLINS] Allergy (Intermediate, Verified 05/17/24 22:16) HIVES Clindamycin HCl Allergy (Unknown, Verified 05/17/24 22:16) Unknown escitalopram [From Lexapro] Allergy (Unknown, Verified 05/17/24 22:16) Unknown penicillin V Allergy (Unknown, Verified 05/17/24 22:16) Unknown Medication List - Last Reconciled 05/17/24 by MEJIA Owusu-MARCIANO ascorbate calcium (vitamin C) 500 mg PO DAILY calcium citrate-vitamin D3 500 mg-12.5 mcg (500 unit) tabs PO copper (ParaGard T 380A) intrauterine DAILY econazole 1% 1 appl topical BID 2 weeks fluoxetine 40 mg PO QAM levothyroxine 75 mcg PO DAILY methylphenidate HCl (Ritalin) 10 mg PO BID ncctztobuvzh-bms-jppy-FA-vit K 45 mg iron- 800 mcg-120 mcg (Bariatric Multivitamins) caps PO nystatin 1 appl topical BID omeprazole magnesium (Prilosec OTC) 20 mg PO DAILY oxybutynin chloride ER 10 mg PO DAILY 30 days HPI Comments Details: Ramya is a very pleasant 38-year-old female patient of Dr. Patel. She has a past medical history of obesity, PCOS, fibroadenoma of right breast, DVT, occipital neuralgia, hypothyroidism, and ADHD. She presents to the office today for a follow-up. Of note, patient was seen approximately 2 months ago as a new patient for ongoing urinary urgency, and mixed urinary incontinence at which time a retroperitoneal ultrasound was ordered for further assessment evaluation in the patient was started on 10 mg of oxybutynin daily. Recent retroperitoneal ultrasound results reviewed with the patient today. Bilateral kidneys are normal in size, contour, and echogenicity. No renal calculi, lesions, and or hydronephrosis noted bilaterally. The bladder is fluid-filled. Bilateral ureteral jets are demonstrated. Pre void bladder volume is a proximally 450 mL. Postvoid bladder volume is a proximally 65 mls. In discussion with the patient today she reports feeling 10 mg of oxybutynin daily has been helpful with decreasing sense of urinary urgency however she does continue to experience episodes of mixed urinary incontinence. She discusses having had bariatric surgery over a year ago and has since lost 97 lb. She does report improvement with lower urinary tract symptoms with weight loss however still continues to experience increased episodes of mixed urinary incontinence daily. She reports following up with cooler conveyor loader and discussing ongoing lower urinary tract symptoms and has since completed pelvic floor therapy without any improvement in lower urinary tract symptoms. She reports utilizing 1-3 Kenzie pads per day. She otherwise denies nocturia, hematuria, dysuria, foul smelling urine, changes to urinary stream, flank pain, fever, and or chills. In office urinalysis results reviewed with the patient today. PVR 0 mL. We discussed at length potential causes of mixed urinary incontinence she is experiencing. Discussed bladder triggers/irritants. We discussed trial of Myrbetriq verses Gemtesa versus Toviaz and or other medications to treat OAB. She otherwise offers no other issues or concerns at this time. [facility] Medical History Varicosities of leg Obesity PCOS (polycystic ovarian syndrome) Fibroadenoma of right breast DVT (deep venous thrombosis) Occipital neuralgia COVID-19 Hypothyroid ADHD Surgical History H/O varicose vein stripping Hx of wisdom tooth extraction Family History Maternal Aunt Breast cancer Father Heart disease H/O heart artery stent Social History Alcohol intake: current Review of Systems Const All systems reviewed & are unremarkable except as noted in HPI and below Physical Exam Const General: cooperative, healthy appearing, comfortable, no acute distress, well developed, alert and awake Nutritional Appearance: overweight Orientation/consciousness: patient oriented x3 Limitations: no limitations HEENT Head: Yes normal to inspection, Yes normocephalic and Yes atraumatic Ears: hearing grossly normal bilaterally Eyes General: appearance normal, both eyes and all related structures Neck Neck: Yes normal visual inspection and Yes trachea midline Chest Chest palpation & inspection: normal inspection of the chest Resp Effort & Inspection: normal respiratory effort and able to speak in complete sentences Cardio Rate: regular rate GI Inspection: Yes normal to inspection General: Yes no CVA tenderness Back/Spine/Pelvis Back: no CVA tenderness Skin General skin exam: no rashes or lesions noted Neuro General: patient oriented x3 Extrem General: Yes normal to inspection Psych Appearance: grossly normal and well kempt Mental Status: mental status grossly normal Speech and movement: Normal speech and movement present and Clear speech present Affect: normal affect Attitude: cooperative Thought process: Normal thought process present Thought content: Normal thought content present Insight: Fair insight present (Psych) Judgement: Fair judgement present (Psych) Office Procedures Post Void Residual Post Residual Void Post Void Residual (PVR): 0 39523-Rysh Void Residual by ultrasound Results AMB Urinalysis, Automated UA Leukoctes 0 Tayo/uL Last Edit by [employer] Hodges on 05/17/24 16:36 UA Nitrite Last Edit by [employer] on 05/17/24 16:36 UA Urobilinogen 0.2 mg/dL Last Edit by [employer] on 05/17/24 16:36 UA Protein 0 mg/dL Last Edit by [employer] on 05/17/24 16:36 UA pH 6.0 Last Edit by [employer] on 05/17/24 16:36 UA Blood 0 Luis Daniel/uL Last Edit by [employer] on 05/17/24 16:36 UA Specific Morton 1.005 Last Edit by [employer] on 05/17/24 16:36 UA Ketone Last Edit by [employer] on 05/17/24 16:36 UA Bilirubin 0 mg/dL Last Edit by [employer] on 05/17/24 16:36 UA Glucose 0 mg/dL Last Edit by Mohamud Hodges on 05/17/24 16:36 Results Reviewed Results Reviewed: Laboratory Last Values Urine pH (Auto) 6.0 05/17/24 16:13 Specific Morton (Auto) 1.005 05/17/24 16:13 Urine Protein (Auto) 0 mg/dL 05/17/24 16:13 Glucose (UA)(Auto) 0 mg/dL 05/17/24 16:13 Urine Blood (Auto) 0 Luis Daniel/uL 05/17/24 16:13 Urine Bilirubin (Auto) 0 mg/dL 05/17/24 16:13 Urine Urobilinogen (Auto) 0.2 mg/dL 05/17/24 16:13 Leukocyte Esterase (Auto) 0 Tayo/uL 05/17/24 16:13 Date of Service: 04/27/24 EXAMINATION: US RETROPERITONEAL COMPLETE (RENAL) FINDINGS: RIGHT KIDNEY: 11 x 5 x 5 cm (SAG x AP x TRV). Volume is 134 cc. The kidney is normal in size, contour, and echogenicity. Renal cortical thickness is normal. No calculi or focal parenchymal lesions. No hydronephrosis. Normal flow on color Doppler interrogation within the renal hilum. LEFT KIDNEY: 11 x 5 x 6 cm (SAG x AP x TRV). Volume is 169 cc. The kidney is normal in size, contour, and echogenicity. Renal cortical thickness is normal. No calculi or focal parenchymal lesions. No hydronephrosis. Normal flow on color Doppler interrogation of the renal hilum. BLADDER: Fluid-filled. Bilateral ureteral jets are demonstrated. Prevoid bladder volume is 455 mL. Postvoid bladder volume is 64 mL. IMPRESSION: 64 cc residual urine in a post void image. No hydronephrosis.. Assessment & Plan Assessment & Plan (1) Urge incontinence: Code(s): N39.41 - Urge incontinence Category: Medical (2) Urinary incontinence: Code(s): R32 - Unspecified urinary incontinence Category: Medical Plan In office urinalysis results reviewed with the patient today; as noted above. PVR 0 mL. Continue oxybutynin as discussed and prescribed. Discussed bladder triggers/irritants. Recent retroperitoneal ultrasound results reviewed with the patient today. We discuss trial of other OAB medications however patient discusses her reluctancy in taking medications. Discussed at length potential causes of mixed urinary incontinence. Will schedule for in office urodynamics. Follow-up per doctor's orders; or sooner with any issues, concerns, and or questions. Orders: Orders AMB Urinalysis Automated 05/17/24 Z13.9 - Encounter for screening, unspecified AMB Post Void Residual by ultrasound 05/17/24 N39.41 - Urge incontinence Patient Instructions: The patient had an opportunity to ask questions regarding the treatment plan. All questions were answered. Physical exam, labs, and imaging were discussed and reviewed in detail. As well as risks, benefits, and discussion of treatment choices. No major barriers to understanding were identified. The patient expressed understanding and agreement with the above treatment plan. The patient was made aware they should contact our office by phone for worsening of their current condition, the appearance of new symptoms, or with any questions or concerns. Compliance is encouraged with any medications and follow up testing that is ordered. It is a privilege to be allowed the opportunity to participate in? your urological care.? Again, if you have any questions or concerns If you have any questions or concerns please do not hesitate to contact me. The office is [phone]. This note is constructed using voice recognition software. While every effort has been made to ensure accuracy instructional technology director errors may have been included. Yours sincerely, MARCIANO Owusu Coding Level of Care Code Est Pt Level 3 (79198) Diagnoses Urge incontinence N39.41 Urinary incontinence R32 CPT Codes Post Residual Void - PVR CPT Code: 79569-Rxhw Void Residual by ultrasound ([id number])
== END 2024-05-17 16:35 | disposition home or self-care (01) ==
LOC: HO.HUSH 15:59
PROVIDERS: PCP Internal Medicine; Visit Provider Nurse Practitioner Family
DX: N39.41 Urge incontinence (principal)
CPT/HCPCS: 99213

== ENCOUNTER → 2024-05-17 15:58 | Outpatient (BNVA) | payer OTHER, SELFPAY | PROVIDERS: PCP Internal Medicine; Visit Provider Nurse Practitioner Family | DX: N39.46 Mixed incontinence (principal) | CPT/HCPCS: 51798; 81003; 99212 ==

== ENCOUNTER 2024-05-31 08:59 | Outpatient (REF) | payer OTHER, SELFPAY ==
[2024-05-31 09:54] LABS: Appearance Urine Clear; Color Urine Yellow; Glucose Urine UA Negative (Negative); Leukocyte Esterase Urine Small (1+) (Negative); Nitrite Urine Negative (Negative); Specific Gravity - Urine <= 1.005 (1.005-1.025); UMIC TRIGGER UA YES; Urine Blood Negative (Negative); Urine Ketones Negative (Negative); Urine Protein Negative (Neg-Trace)
[2024-05-31 10:07] LABS: Bacteria Urine None Seen (None Seen); Hyaline Casts Urine 0-2 /LPF (0-2); RBC Urine 0-2 /HPF (0-2); Squamous Epithelial Cell Urine 0-2 /HPF (0-2); WBC Urine 0-5 /HPF (0-5)
== END 2024-05-31 09:00 | disposition home or self-care (01) ==
LOC: HO.LAB 08:59
PROVIDERS: PCP Internal Medicine; Visit Provider Urology
DX: N39.41 Urge incontinence (principal)
CPT/HCPCS: 81001; 87086; 87147

== ENCOUNTER 2024-06-23 09:26 | Outpatient (AMB) | payer OTHER, SELFPAY ==
--- NOTE | 2024-06-22 16:46 | MHC.OFFVIS ---
Intake Visit Reasons: Urodynamics Intake Note: Patient is present for Urodynamic Procedure Farm Specialist Required: No Accompanied by: Self / Same As Patient Allergies azithromycin [AZITHROMYCIN] Allergy (Intermediate, Verified 06/23/24 10:01) HIVES cephalexin [CEPHALEXIN] Allergy (Intermediate, Verified 06/23/24 10:01) HIVES Penicillins [PENICILLINS] Allergy (Intermediate, Verified 06/23/24 10:01) HIVES Clindamycin HCl Allergy (Unknown, Verified 06/23/24 10:) Unknown escitalopram [From Lexapro] Allergy (Unknown, Verified 06/23/24 10:01) Unknown penicillin V Allergy (Unknown, Verified 06/23/24 10:01) Unknown HPI Comments Details: 06/23/24-- here for urodynamics. Ramya is here for urodynamics. The patient has complaints primarily of urge. Bothersome symptoms are daytime frequency. Nocturia x 1. She is on oxybutynin 10 mg daily and has breakthru urgency and leakage episodes. Interpretation: During the filling phase there was normal sensation, sensory urgency was noted, Leakage was not observed during cough or valsalva stress. Findings consistent with detrusor overactivity. EMG- Appropriate changes in the waveforms were noted through out the study. Discussion of results with Ramya, discussed that urinary leakage may be related to pelvic floor muscles weakness and/or bladder spasms. Treatment options discussed for OAB included anticholinergics/antimuscarinics, neuromodulation, bladder botox injection. The pt has partial response to oxybutynin 10 mg, with some dry mouth, increasing dose will increase SE, Alternative meds, antimuscarincs myrbetric, gemtesa discussed. She just filled her oxybutinin script. FU in one month to discuss alternative medication. 20 minutes spent in review of records pertaining to this visit and including imhy-bi-frvp discussion regarding treatment options with the patient and documentation of this visit. [facility] Medical History Varicosities of leg Obesity PCOS (polycystic ovarian syndrome) Fibroadenoma of right breast DVT (deep venous thrombosis) Occipital neuralgia COVID-19 Hypothyroid ADHD Surgical History H/O varicose vein stripping Hx of wisdom tooth extraction Family History Maternal Aunt Breast cancer Father Heart disease H/O heart artery stent Social History Alcohol intake: current Review of Systems Const All systems reviewed & are unremarkable except as noted in HPI and below Reports no additional complaints Eyes Reports no additional complaints ENT Reports no additional complaints Card Reports no additional complaints Resp Reports no additional complaints GI Reports no additional complaints Reports as per HPI Musc Reports no additional complaints Skin/Breast Reports system reviewed and no additional complaints, except as documented Neuro Reports no additional complaints Psych Reports no additional complaints Endo Reports no additional complaints Horacio/Lymph Reports no additional complaints Aller/Immun Reports no additional complaints Office Procedures Urodynamic Studies Consent Discussed risk and benefit or proposed procedure with the patient. Information consent for procedure given to the patient. Discussed technical aspects, risks, benefits and alternatives in full. Addressed all of the patient's questions and concerns regarding the procedure. The patient demonstrated knowledge and understanding. They wish to proceed with this procedure. Preparation The patient was prepped in the usual manner. A pile driver operator barge mounted was present and in the room. Genitalia was prepped with betadine solution in a sterile manner. Procedure Complex Uroflow Complex uroflow performed by: Bonnie Truong Maximum urinary flow rate (mL/second): 35 Voiding time (seconds): 20 Voided volume (mL): 347 Residual urine (mL): 0 Cystometrogram First sensation at (mL): 42 mL First desire at (mL): 215 mL Strong desire to void occured at (mL):347 mL Strong desire detrussor pressure (cm H2O): 0.9 Maximum fill (mL): 483 mL Voided with max detrussor pressure of (cm H2O): 6.7 Maximum flow rate (mL/second): 8.7 mL/s Prep: The patient was prepped in the usual manner. A pile driver operator barge mounted was present and in the room. Genitalia was prepped with betadine solution in a sterile manner. 98707-Ppdzrhssizbvdk w/ GEOLOGY TECHNICIAN 93875-Wxgfjay-Ebswtsiucgoe First 96868-Evze/Urinary Muscle Study 66492-Jnkpb-Zbeuxaxkr Pressure Test Procedure code (CPT) selection complete Office Meds nitrofurantoin monohydrate/macrocrystals 100 mg capsule Performing Provider: Bonnie Truong MD Performing Location: [facility] [place] [facility] Administered by: Bear Merida LPN on 06/23/24 10:01 Dose Route Admin Location Dispensed Lot Number Expiration Date NDC Plastic Extrusion Operator 100 mg PO 1 cap Assessment & Plan Assessment & Plan (1) Detrusor overactivity: Code(s): N32.81 - Overactive bladder Category: Medical (2) Urge incontinence: Code(s): N39.41 - Urge incontinence Category: Medical Plan FU one month with CERTIFED REFRIGERATION OPERATOR Orders: Orders AMB Urodynamics Studies Today N39.41 - Urge incontinence, R10.2 - Pelvic and perineal pain, R32 - Unspecified urinary incontinence Patient Instructions: The patient had an opportunity to ask questions regarding treatment plan. The patient expressed understanding and agreement with the above treatment plan. The patient is aware they should contact our office by phone for worsening of their current condition or the appearance of new symptoms. Compliance is encouraged with any medications and followup testing that is ordered. It is a privilege to be allowed the opportunity to participate in the urologic care of your patient. If you have any questions or concerns regarding treatment for the above conditions please do not hesitate to contact me. The office telephone contact is [phone]. This note is constructed in part using voice recognition software. While every effort has been made to ensure accuracy court of appeals judge errors may have been included. Yours sincerely, Bonnie Truong MD Coding Level of Care Code Est Pt Level 3 (53758) Diagnoses Detrusor overactivity N32.81 Urge incontinence N39.41 CPT Codes Urodynamic Studies - CPT: 60192-Wndqbpqqasqwud w/ GEOLOGY TECHNICIAN ([id number]) Urodynamic Studies - CPT: 75445-Xruyjgo-Cpffovmndmzj First ([id number]) Urodynamic Studies - CPT: 59716-Kihx/Urinary Muscle Study ([id number]) Urodynamic Studies - CPT: 39151-Jsbwe-Jjbgtcyyc Pressure Test ([id number])
== END 2024-06-23 11:00 | disposition home or self-care (01) ==
PROVIDERS: PCP Internal Medicine; Visit Provider Urology
DX: N39.41 Urge incontinence (principal); R10.2 Pelvic and perineal pain; N32.81 Overactive bladder
CPT/HCPCS: 51728; 51741; 51784; 51797; 99213

== ENCOUNTER → 2024-06-23 09:26 | Outpatient (BNVA) | payer OTHER, SELFPAY | PROVIDERS: PCP Internal Medicine; Visit Provider Urology | DX: R35.1 Nocturia (principal); N32.81 Overactive bladder; N39.41 Urge incontinence; R10.2 Pelvic and perineal pain | CPT/HCPCS: 51728; 51741; 51784; 51797; 99212 ==

== ENCOUNTER 2024-07-31 07:41 | Outpatient (AMB) | payer OTHER, SELFPAY ==
--- NOTE | 2024-07-31 07:41 | A.OFFVIS_ITS ---
Intake Visit Reasons: 1m followup Intake Note: Patient presents today for tele visit follow up on: incontinence Urology Medications: none Blood Thinner: none * urodynamics 06/22/24 Tour Bus Driver Required: No Allergies azithromycin [AZITHROMYCIN] Allergy (Intermediate, Verified 07/31/24 08:07) HIVES cephalexin [CEPHALEXIN] Allergy (Intermediate, Verified 07/31/24 08:07) HIVES Penicillins [PENICILLINS] Allergy (Intermediate, Verified 07/31/24 08:07) HIVES Clindamycin HCl Allergy (Unknown, Verified 07/31/24 08:07) Unknown escitalopram [From Lexapro] Allergy (Unknown, Verified 07/31/24 08:07) Unknown penicillin V Allergy (Unknown, Verified 07/31/24 08:07) Unknown Medication List - Last Reconciled 07/31/24 by MEJIA Owusu-MARCIANO ascorbate calcium (vitamin C) 500 mg PO DAILY calcium citrate-vitamin D3 500 mg-12.5 mcg (500 unit) tabs PO copper (ParaGard T 380A) intrauterine DAILY fluoxetine 60 mg PO QAM levothyroxine 75 mcg PO DAILY methylphenidate HCl (Ritalin) 10 mg PO BID mirabegron ER (Myrbetriq) 25 mg PO DAILY 30 days mechggyavbbe-fib-ftvg-FA-vit K 45 mg iron- 800 mcg-120 mcg (Bariatric Multivitamins) caps PO omeprazole magnesium (Prilosec OTC) 20 mg PO DAILY HPI Comments Details: Ramya is a pleasant 39-year-old female patient of Dr. Patel. She has a past medical history of varicose veins, obesity, PCOS, DVT, occipital neuralgia, hypothyroidism, and ADHD. She is being followed up on today via video telehealth for her urinary urgency and frequency. Of note, during last office visit approximately 6 weeks ago patient underwent in office urodynamics. Results are as follows: Interpretation: During the filling phase there was normal sensation, sensory urgency was noted, Leakage was not observed during cough or valsalva stress. Findings consistent with detrusor overactivity. EMG- Appropriate changes in the waveforms were noted through out the study. Discussion of results with Ramya, discussed that urinary leakage may be related to pelvic floor muscles weakness and/or bladder spasms. Treatment options discussed for OAB included anticholinergics/antimuscarinics, neuromodulation, bladder botox injection. She had previously trialed oxybutynin 10 mg with partial response however experienced significant dry mouth. We discussed alternative therapies as well as medications. We discussed potential causes of lower urinary tract symptoms patient was experiencing. Previous workup has included a retroperitoneal ultrasound 05/11 noting bilateral kidneys are normal in size, contour, and echogenicity. Bilateral kidneys with no lesions, renal calculi, or hydronephrosis. Pre void bladder volume was approximately 450 mL. Postvoid bladder volume is approximately 65 mL. She continues to experience lower urinary tract symptoms. Will trial Myrbetriq. All questions were answered. [facility] Medical History Varicosities of leg Obesity PCOS (polycystic ovarian syndrome) Fibroadenoma of right breast DVT (deep venous thrombosis) Occipital neuralgia COVID-19 Hypothyroid ADHD Surgical History H/O varicose vein stripping Hx of wisdom tooth extraction Family History Maternal Aunt Breast cancer Father Heart disease H/O heart artery stent Social History Alcohol intake: current Review of Systems Const All systems reviewed & are unremarkable except as noted in HPI and below Physical Exam Const General: cooperative, healthy appearing, comfortable, no acute distress, well developed, alert and awake Resp Effort & Inspection: normal respiratory effort and able to speak in complete sentences Psych Appearance: grossly normal and well kempt Mental Status: mental status grossly normal Speech and movement: Clear speech present Affect: normal affect Attitude: cooperative Thought process: Normal thought process present Thought content: Normal thought content present Insight: Fair insight present (Psych) Judgement: Fair judgement present (Psych) Telehealth Telehealth Telehealth Platform: [facility] Location of provider rendering services: practice address Location of patient: address on file Patient Identification confirmed using: Name, : Yes Telehealth method: video Patient verbally consented to treatment: Yes Patient verbally consented to billing insurance company: Yes Patient informed of any privacy concerns related to visit: Yes Minutes spent on Phone/Video with Pt.: 20 Assessment & Plan Assessment & Plan (1) Detrusor overactivity: Code(s): N32.81 - Overactive bladder Category: Medical (2) Urge incontinence: Code(s): N39.41 - Urge incontinence Category: Medical (3) Urinary incontinence: Code(s): R32 - Unspecified urinary incontinence Category: Medical Plan Urodynamic results were reviewed with the patient today; as noted above. We discussed potential causes of lower urinary tract symptoms patient is experiencing as well as further treatment options and risks and benefits of these treatment options. Stop oxybutynin. Start Myrbetriq as discussed and prescribed. Continue with pelvic floor exercises. Discussed bladder triggers/irritants. Follow-up in 6-8 weeks with PVR; or sooner with any issues, concerns, and or questions. Medications: New mirabegron ER (Myrbetriq) 25 mg PO DAILY 30 tabs 3RF 30 days N30.10 - Interstitial cystitis (chronic) without hematuria, N32.81 - Overactive bladder, R35.1 - Nocturia, R39.15 - Urgency of urination Patient Instructions: The patient had an opportunity to ask questions regarding the treatment plan. All questions were answered. Physical exam, labs, and imaging were discussed and reviewed in detail. As well as risks, benefits, and discussion of treatment choices. No major barriers to understanding were identified. The patient expressed understanding and agreement with the above treatment plan. The patient was made aware they should contact our office by phone for worsening of their current condition, the appearance of new symptoms, or with any questions or concerns. Compliance is encouraged with any medications and follow up testing that is ordered. It is a privilege to be allowed the opportunity to participate in? your urological care.? Again, if you have any questions or concerns If you have any questions or concerns please do not hesitate to contact me. The office is [phone]. This note is constructed using voice recognition software. While every effort has been made to ensure accuracy automatic glove turner and former errors may have been included. Yours sincerely, ISELA Owusu Coding Level of Care Code Tele Est Pt Level 4 (61919) Diagnoses Detrusor overactivity N32.81 Urge incontinence N39.41 Urinary incontinence R32
== END 2024-07-31 08:24 | disposition home or self-care (01) ==
LOC: HO.HUSH 07:41
PROVIDERS: PCP Internal Medicine; Visit Provider Nurse Practitioner Family
DX: N32.81 Overactive bladder (principal)
CPT/HCPCS: 99214

== ENCOUNTER → 2024-07-31 07:41 | Outpatient (BNVA) | payer OTHER, SELFPAY | PROVIDERS: PCP Internal Medicine; Visit Provider Nurse Practitioner Family ==

== ENCOUNTER 2024-10-31 14:27 | Outpatient (AMB) | payer OTHER, SELFPAY ==
--- NOTE | 2024-10-31 14:39 | MHC.OFFVIS ---
Intake Visit Reasons: 3m followup Intake Note: Patient presents today for tele visit follow up on: incontinence Urology Medications: solifenacin Blood Thinner: none PVR: 0ml's Hydro Plant Technician Required: No Allergies azithromycin [AZITHROMYCIN] Allergy (Intermediate, Verified 10/31/24 17:10) HIVES cephalexin [CEPHALEXIN] Allergy (Intermediate, Verified 10/31/24 17:10) HIVES Penicillins [PENICILLINS] Allergy (Intermediate, Verified 10/31/24 17:10) HIVES Clindamycin HCl Allergy (Unknown, Verified 10/31/24 17:10) Unknown escitalopram [From Lexapro] Allergy (Unknown, Verified 10/31/24 17:10) Unknown penicillin V Allergy (Unknown, Verified 10/31/24 17:10) Unknown Medication List - Last Reconciled 10/31/24 by MEJIA Owusu-MARCIANO ascorbate calcium (vitamin C) 500 mg PO DAILY calcium citrate-vitamin D3 500 mg-12.5 mcg (500 unit) tabs PO copper (ParaGard T 380A) intrauterine DAILY fluoxetine 60 mg PO QAM levothyroxine 75 mcg PO DAILY methylphenidate HCl (Ritalin) 10 mg PO BID aexmuvmeiiqk-lft-wtoe-FA-vit K 45 mg iron- 800 mcg-120 mcg (Bariatric Multivitamins) caps PO omeprazole magnesium (Prilosec OTC) 20 mg PO DAILY solifenacin (Vesicare) 5 mg PO DAILY 30 days HPI Comments Details: Ramya is a pleasant 39-year-old female patient of Dr. Patel. She has a past medical history of varicose veins, obesity, PCOS, DVT, occipital neuralgia, hypothyroidism, and ADHD. She presents to the office today for follow-up of her urinary urgency and frequency. In discussion with the patient today she reports that although VESIcare 5 mg daily has been somewhat helpful in these lower urinary tract symptoms she has been experiencing a significant amount of constipation. In office urinalysis results reviewed with the patient today. PVR 0 mL. Of note patient underwent in office urodynamics 07/11... Results are as follows: Interpretation: During the filling phase there was normal sensation, sensory urgency was noted, Leakage was not observed during cough or valsalva stress. Findings consistent with detrusor overactivity. EMG- Appropriate changes in the waveforms were noted through out the study. Discussion of results with Ramya, discussed that urinary leakage may be related to pelvic floor muscles weakness and/or bladder spasms. Treatment options discussed for OAB included anticholinergics/antimuscarinics, neuromodulation, bladder botox injection. She had previously trialed oxybutynin 10 mg with partial response however experienced significant dry mouth. We discussed alternative therapies as well as medications. We discussed potential causes of lower urinary tract symptoms patient was experiencing. Previous workup has included a retroperitoneal ultrasound 05/11 noting bilateral kidneys are normal in size, contour, and echogenicity. Bilateral kidneys with no lesions, renal calculi, or hydronephrosis. Pre void bladder volume was approximately 450 mL. Postvoid bladder volume is approximately 65 mL. She continues to experience lower urinary tract symptoms. Will trial Myrbetriq. All questions were answered. [facility] Medical History Varicosities of leg Obesity PCOS (polycystic ovarian syndrome) Fibroadenoma of right breast DVT (deep venous thrombosis) Occipital neuralgia COVID-19 Hypothyroid ADHD Surgical History H/O varicose vein stripping Hx of wisdom tooth extraction Family History Maternal Aunt Breast cancer Father Heart disease H/O heart artery stent Social History Alcohol intake: current Review of Systems Const All systems reviewed & are unremarkable except as noted in HPI and below Physical Exam Const General: cooperative, healthy appearing, comfortable, no acute distress, well developed, alert and awake Nutritional Appearance: overweight Orientation/consciousness: patient oriented x3 Limitations: no limitations HEENT Head: Yes normal to inspection, Yes normocephalic and Yes atraumatic Ears: hearing grossly normal bilaterally Eyes General: appearance normal, both eyes and all related structures Neck Neck: Yes normal visual inspection and Yes trachea midline Chest Chest palpation & inspection: normal inspection of the chest Resp Effort & Inspection: normal respiratory effort and able to speak in complete sentences Cardio Rate: regular rate GI Inspection: Yes normal to inspection General: Yes no CVA tenderness Back/Spine/Pelvis Back: no CVA tenderness Skin General skin exam: no rashes or lesions noted Neuro General: patient oriented x3 Extrem General: Yes normal to inspection Psych Appearance: grossly normal and well kempt Mental Status: mental status grossly normal Speech and movement: Clear speech present Affect: normal affect Attitude: cooperative Thought process: Normal thought process present Thought content: Normal thought content present Insight: Fair insight present (Psych) Judgement: Fair judgement present (Psych) Results AMB Urinalysis, Automated UA Leukoctes 0 Tayo/uL Last Edit by [employer] on 10/31/24 15:48 UA Nitrite Last Edit by [email or web address] on 10/31/24 15:48 UA Urobilinogen 0.2 mg/dL Last Edit by [employer] on 10/31/24 15:48 UA Protein 0 mg/dL Last Edit by [employer] on 10/31/24 15:48 UA pH 6.0 Last Edit by [employer] on 10/31/24 15:48 UA Blood 10 Lui Sdaniel/uL Last Edit by [employer] on 10/31/24 15:48 UA Specific [place] 1.005 Last Edit by [employer] on 10/31/24 15:48 UA Ketone Last Edit by [employer] on 10/31/24 15:48 UA Bilirubin 0 mg/dL Last Edit by Animeeple on 10/31/24 15:48 UA Glucose 0 mg/dL Last Edit by [email or web address] on 10/31/24 15:48 Results Reviewed Results Reviewed: Laboratory Last Values Urine pH (Auto) 6.0 10/31/24 15:46 Specific [place] (Auto) 1.005 10/31/24 15:46 Urine Protein (Auto) 0 mg/dL 10/31/24 15:46 Glucose (UA)(Auto) 0 mg/dL 10/31/24 15:46 Urine Blood (Auto) 10 Luis Daniel/uL 10/31/24 15:46 Urine Bilirubin (Auto) 0 mg/dL 10/31/24 15:46 Urine Urobilinogen (Auto) 0.2 mg/dL 10/31/24 15:46 Leukocyte Esterase (Auto) 0 Tayo/uL 10/31/24 15:46 Assessment & Plan Assessment & Plan (1) Detrusor overactivity: Code(s): N32.81 - Overactive bladder Category: Medical (2) Urge incontinence: Code(s): N39.41 - Urge incontinence Category: Medical (3) Urinary incontinence: Code(s): R32 - Unspecified urinary incontinence Category: Medical Plan In office urinalysis results with the patient today; as noted above. PVR 0 mL. Stop VESIcare. We discussed at length potential causes of her lower urinary tract symptoms as well as further treatment options and risks and benefits of these treatment options. Start Myrbetriq as discussed and prescribed. Follow-up in 1-3 months with PVR; or sooner with any issues, concerns, and or questions Orders: Orders AMB Urinalysis Automated Today Z13.9 - Encounter for screening, unspecified Medications: New mirabegron ER (Myrbetriq) 25 mg PO DAILY 30 tabs 3RF 30 days N32.81 - Overactive bladder, R35.1 - Nocturia, R39.15 - Urgency of urination Discontinued solifenacin (Vesicare) Discontinued Reason: Doctor's Order 5 mg PO DAILY 30 days 30 tabs 3RF Patient Instructions: The patient had an opportunity to ask questions regarding the treatment plan. All questions were answered. Physical exam, labs, and imaging were discussed and reviewed in detail. As well as risks, benefits, and discussion of treatment choices. No major barriers to understanding were identified. The patient expressed understanding and agreement with the above treatment plan. The patient was made aware they should contact our office by phone for worsening of their current condition, the appearance of new symptoms, or with any questions or concerns. Compliance is encouraged with any medications and follow up testing that is ordered. It is a privilege to be allowed the opportunity to participate in? your urological care.? Again, if you have any questions or concerns If you have any questions or concerns please do not hesitate to contact me. The office is [phone]. This note is constructed using voice recognition software. While every effort has been made to ensure accuracy trailer steerer errors may have been included. Yours sincerely, MARCIANO Owusu Coding Level of Care Code Est Pt Level 4 (63154) Diagnoses Detrusor overactivity N32.81 Urge incontinence N39.41 Urinary incontinence R32
== END 2024-10-31 15:20 | disposition home or self-care (01) ==
LOC: HO.HUSH 14:27
PROVIDERS: PCP Internal Medicine; Visit Provider Nurse Practitioner Family
DX: N32.81 Overactive bladder (principal); N39.41 Urge incontinence; Z13.9 Encounter for screening, unspecified
CPT/HCPCS: 99214

== ENCOUNTER → 2024-10-31 14:27 | Outpatient (BNVA) | payer OTHER, SELFPAY | PROVIDERS: PCP Internal Medicine; Visit Provider Nurse Practitioner Family | DX: N32.81 Overactive bladder (principal); N39.41 Urge incontinence; R35.1 Nocturia | CPT/HCPCS: 81003 ==

== ENCOUNTER 2025-01-16 13:12 | Outpatient (AMB) | payer OTHER, SELFPAY ==
--- NOTE | 2025-01-16 13:15 | A.OFFVIS_ITS ---
Vital Signs 01/16/25 13:17 Height 5 ft 5 in Weight 230 lb BMI 38.3 BP 120/70 Intake Visit Reasons: MANAGED CARE SPECIALIST annual exam Redye Hand: Redye Hand Present (Ritu) Allergies azithromycin (AZITHROMYCIN) Allergy (Intermediate, Verified 01/16/25 13:16) HIVES cephalexin (CEPHALEXIN) Allergy (Intermediate, Verified 01/16/25 13:16) HIVES Penicillins (PENICILLINS) Allergy (Intermediate, Verified 01/16/25 13:16) HIVES Clindamycin HCl Allergy (Unknown, Verified 01/16/25 13:16) Unknown escitalopram (From Lexapro) Allergy (Unknown, Verified 01/16/25 13:16) Unknown penicillin V Allergy (Unknown, Verified 01/16/25 13:16) Unknown Is last menstrual period known: Yes Last menstrual period: 12/25/24 HPI Comments Details: Patient is a premenopausal woman presenting for annual examination. Doing well with boot and saddle repair person concerns: rash under her breast. Regular monthly menses, ParaGard user. Currently is sexually active. She denies vaginal itching or irritation. STI screening offered; she declined. She tries to eat healthy and stays active with exercise. Denies family history of ovarian or colon cancer. HF breast cancer. Last pap smear 2021, negative. PFSH Medical History Varicosities of leg Obesity PCOS (polycystic ovarian syndrome) Fibroadenoma of right breast DVT (deep venous thrombosis) Occipital neuralgia COVID-19 Hypothyroid ADHD Surgical History H/O gastric sleeve H/O varicose vein stripping Hx of wisdom tooth extraction Family History Maternal Aunt Breast cancer Father Heart disease H/O heart artery stent Family/Other Type 1 diabetes Social History Alcohol intake: former Patient Tobacco Use Status: Never used Tobacco Female Reproductive History Menstrual Date of last menstrual period: 12/25/24 control method: copper IUCD (Paragard 08/31/22) Total pregnancies: 0 Date of last pap smear: 09/29/21 (neg pap and hpv) Review of Systems Const All systems reviewed & are unremarkable except as noted in HPI and below Reports as per HPI Eyes Reports no additional complaints ENT Reports no additional complaints Card Reports no additional complaints Resp Reports no additional complaints GI Reports as per HPI and Reports no additional complaints Reports as per HPI Musc Reports no additional complaints Skin/Breast Reports as per HPI Neuro Reports no additional complaints Psych Reports no additional complaints Endo Reports no additional complaints Horacio/Lymph Reports no additional complaints Aller/Immun Reports no additional complaints Physical Exam Vital Signs: Last Vital Signs BP 120/70 01/16/25 13:17 BMI result Body Mass Index 38.3 Const General: cooperative, healthy appearing, no acute distress, well developed and alert Orientation/consciousness: patient oriented x3 HEENT Head: Yes normal to inspection Eyes General: appearance normal, both eyes and all related structures Neck Neck: Yes normal visual inspection Thyroid: Thyroid normal Chest Chest palpation & inspection: normal inspection of the chest and other (no puckering, dimpling, peau de orange, retraction, discharge, masses) Breast/axilla inspection: normal inspection of the breasts Breast/axilla palpation: normal palpation of the breasts Resp Effort & Inspection: normal respiratory effort GI Inspection: Yes normal to inspection Palpation (GI): Soft to palpation Rectal Exam - Female: deferred General: Yes bladder normal to palpation External Female Exam: normal external appearance and normal appearance of the urethra Speculum Exam - Vagina: normal appearance of the vagina, normal palpation and normal vaginal discharge Speculum Exam - Cervix: normal appearance of the cervix, normal palpation and Other cervical findings present (IUD strings at the os) Bimanual exam- vagina & uterus: normal bimanual exam, normal palpation, uterine size normal, bladder normal to palpation, normal palpation and non-tender Bimanual Exam- Adnexa, other: no masses Skin General skin exam: no rashes or lesions noted Rashes: no rashes Neuro General: patient oriented x3 Cognition (Neuro): normal cognition Extrem General: Yes normal to inspection Psych Attitude: cooperative Thought process: Normal thought process present Assessment & Plan Assessment & Plan (1) Encounter for annual routine gynecological examination: Code(s): Z01.419 - Encounter for gynecological examination (general) (routine) without abnormal findings Category: Medical Plan Discussed: Current recommendations for pap smears per ASCCP guidelines. Breast awareness and periodic breast exams. Maintain a healthy lifestyle including a well balanced diet and routine exercise. Skin appears clear today advised to use Gold Hayden powder for rash during the summer. Patient verbalizes understanding and agrees to the plan of care. She was given opportunity to ask questions and all questions were answered to the best of my ability. RTO in one year for annual boot and saddle repair person examination. This note is constructed using voice recognition software. While every effort has been made to ensure accuracy, kennel assistant errors may have been included. Coding Level of Care Code Est Pt Prev Care 18-39y(99647) Diagnoses Encounter for annual routine gynecological examination Z01.419
[2025-01-16 13:17] VITALS: BP 120/70; BMI 38.3
== END 2025-01-16 13:58 | disposition home or self-care (01) ==
LOC: HO.HWS 13:12
PROVIDERS: PCP Internal Medicine; Visit Provider Advanced Practice Midwife
DX: Z01.419 Encounter for gynecological examination (general) (routine) without abnormal findings (principal)
CPT/HCPCS: 99395; 99459

== ENCOUNTER 2025-01-16 13:12 | Outpatient (REF) | payer OTHER, SELFPAY ==
[2025-01-16 15:52] LABS: Thyroid Stimulating Hormone 1.04 uIU/mL (0.32-4.0)
== END 2025-01-16 13:13 | disposition home or self-care (01) ==
LOC: HO.LAB 13:12
PROVIDERS: Absent Provider Internal Medicine; PCP Internal Medicine; Visit Provider Advanced Practice Midwife
DX: Z01.419 Encounter for gynecological examination (general) (routine) without abnormal findings (principal); J00 Acute nasopharyngitis [common cold]; E03.8 Other specified hypothyroidism; Z68.38 Body mass index [BMI] 38.0-38.9, adult
CPT/HCPCS: 36415; 84443

== ENCOUNTER 2025-01-30 14:43 | Outpatient (AMB) | payer OTHER, SELFPAY ==
--- NOTE | 2025-01-30 14:43 | A.OFFVIS_ITS ---
Intake Visit Reasons: 3m follow up Intake Note: Patient presents today for tele visit follow up on: incontinence and medication review Urology Medications: myrbetriq Blood Thinner: none Booth Cleaner Required: No Allergies azithromycin (AZITHROMYCIN) Allergy (Intermediate, Verified 01/30/25 15:23) HIVES cephalexin (CEPHALEXIN) Allergy (Intermediate, Verified 01/30/25 15:23) HIVES Penicillins (PENICILLINS) Allergy (Intermediate, Verified 01/30/25 15:23) HIVES Clindamycin HCl Allergy (Unknown, Verified 01/30/25 15:23) Unknown escitalopram (From Lexapro) Allergy (Unknown, Verified 01/30/25 15:23) Unknown penicillin V Allergy (Unknown, Verified 01/30/25 15:23) Unknown Medication List - Last Reconciled 01/30/25 by MEJIA Owusu- ascorbate calcium (vitamin C) 500 mg PO DAILY calcium citrate-vitamin D3 500 mg-12.5 mcg (500 unit) tabs PO copper (ParaGard T 380A) intrauterine DAILY fluoxetine 40 mg PO QAM levothyroxine 75 mcg PO DAILY methylphenidate HCl (Ritalin) 10 mg PO BID mirabegron ER (Myrbetriq) 25 mg PO DAILY 30 days uyrqtuhegesa-tln-rgog-FA-vit K 45 mg iron- 800 mcg-120 mcg (Bariatric Multivitamins) caps PO omeprazole magnesium (Prilosec OTC) 20 mg PO DAILY HPI Comments Details: Ramya is a pleasant 39-year-old female patient of Dr. Patel. She has a past medical history of varicose veins, obesity, PCOS, DVT, occipital neuralgia, hypothyroidism, and ADHD. She is being followed up on today via video telehealth for her lower urinary tract symptoms (urinary urgency/urinary frequency). In discussion with the patient today she reports to be doing and feeling well. She discusses feeling Myrbetriq 25 mg daily has been extremely helpful in lower urinary tract symptoms she was experiencing. She discusses how grateful she is at this medication is working for her. She has previously trialed VESIcare in oxybutynin however experienced significant amount of const ipation and or dry mouth. Of note patient underwent in office urodynamics 07/11... Results are as follows: Interpretation: During the filling phase there was normal sensation, sensory urgency was noted, Leakage was not observed during cough or valsalva stress. Findings consistent with detrusor overactivity. EMG- Appropriate changes in the waveforms were noted through out the study. Discussion of results with Ramya, discussed that urinary leakage may be related to pelvic floor muscles weakness and/or bladder spasms. Treatment options discussed for OAB included anticholinergics/antimuscarinics, neuromodulation, bladder botox injection. We discussed alternative therapies as well as medications. We discussed potential causes of lower urinary tract symptoms patient was experiencing. Previous workup has also included a retroperitoneal ultrasound 05/11 noting bilateral kidneys are normal in size, contour, and echogenicity. Bilateral kidneys with no lesions, renal calculi, or hydronephrosis. Pre void bladder volume was approximately 450 mL. Postvoid bladder volume is approximately 65 mL. She reports be happy with her current voiding parameters and would like to continue with Myrbetriq 25 mg daily. All questions were answered. She otherwise offers no other issues or concerns at this time. [facility] Medical History Varicosities of leg Obesity PCOS (polycystic ovarian syndrome) Fibroadenoma of right breast DVT (deep venous thrombosis) Occipital neuralgia COVID-19 Hypothyroid ADHD Surgical History H/O gastric sleeve H/O varicose vein stripping Hx of wisdom tooth extraction Family History Maternal Aunt Breast cancer Father Heart disease H/O heart artery stent Family/Other Type 1 diabetes Social History Alcohol intake: former Patient Tobacco Use Status: Never used Tobacco Review of Systems Const All systems reviewed & are unremarkable except as noted in HPI and below Physical Exam Const General: cooperative, healthy appearing, comfortable, no acute distress, well developed, alert and awake Nutritional Appearance: overweight Orientation/consciousness: patient oriented x3 Limitations: no limitations HEENT Head: Yes normal to inspection, Yes normocephalic and Yes atraumatic Ears: hearing grossly normal bilaterally Eyes General: appearance normal, both eyes and all related structures Neck Neck: Yes normal visual inspection and Yes trachea midline Chest Chest palpation & inspection: normal inspection of the chest Resp Effort & Inspection: normal respiratory effort and able to speak in complete sentences Cardio Rate: regular rate GI Inspection: Yes normal to inspection General: Yes no CVA tenderness Back/Spine/Pelvis Back: no CVA tenderness Skin General skin exam: no rashes or lesions noted Neuro General: patient oriented x3 Extrem General: Yes normal to inspection Psych Appearance: grossly normal and well kempt Mental Status: mental status grossly normal Speech and movement: Clear speech present Affect: normal affect Attitude: cooperative Thought process: Normal thought process present Thought content: Normal thought content present Insight: Fair insight present (Psych) Judgement: Fair judgement present (Psych) Telehealth Telehealth Telehealth Platform: ticketea Location of provider rendering services: practice address Location of patient: address on file Patient Identification confirmed using: Name, : Yes Telehealth method: video Patient verbally consented to treatment: Yes Patient verbally consented to billing insurance company: Yes Patient informed of any privacy concerns related to visit: Yes Minutes spent on Phone/Video with Pt.: 15 Assessment & Plan Assessment & Plan (1) Urinary incontinence: Code(s): R32 - Unspecified urinary incontinence Category: Medical (2) Urge incontinence: Code(s): N39.41 - Urge incontinence Category: Medical (3) Detrusor overactivity: Code(s): N32.81 - Overactive bladder Category: Medical Plan Will continue with Myrbetriq; refill provided. She currently denies any bothersome urinary issues or concerns. She reports be happy with current voiding parameters. We discussed continuing to avoid bladder triggers and irritants. We also discussed potential causes of lower urinary tract symptoms patient is experiencing as well as further treatment options and risks and benefits of these treatment options; however she reports significant improvement in lower urinary tract symptoms she had been experiencing and will continue with Myrbetriq. Follow-up in 6 months with PVR; or sooner with any issues, concerns, and or questions. Patient Instructions: The patient had an opportunity to ask questions regarding the treatment plan. All questions were answered. Physical exam, labs, and imaging were discussed and reviewed in detail. As well as risks, benefits, and discussion of treatment choices. No major barriers to understanding were identified. The patient expressed understanding and agreement with the above treatment plan. The patient was made aware they should contact our office by phone for worsening of their current condition, the appearance of new symptoms, or with any questions or concerns. Compliance is encouraged with any medications and follow up testing that is ordered. It is a privilege to be allowed the opportunity to participate in? your urological care.? Again, if you have any questions or concerns If you have any questions or concerns please do not hesitate to contact me. The office is [phone]. This note is constructed using voice recognition software. While every effort has been made to ensure accuracy show host/hostess errors may have been included. Yours sincerely, MARCIANO Owusu Coding Level of Care Code Tele Est Pt Level 3 (75456) Diagnoses Urinary incontinence R32 Urge incontinence N39.41 Detrusor overactivity N32.81
== END 2025-01-30 16:15 | disposition home or self-care (01) ==
LOC: HO.HUSH 14:43
PROVIDERS: PCP Internal Medicine; Visit Provider Nurse Practitioner Family
DX: N39.41 Urge incontinence (principal); N32.81 Overactive bladder
CPT/HCPCS: 99213